=== PATIENT | male | born 1995 | race Two or more races ===

== ENCOUNTER 2020-04-18 01:22 | Observation (INO) ==
[2020-04-18] MEDS ORDERED: SODIUM CHLORIDE 0.9% 1,000 ML IV STA (01:48)
[2020-04-18] MEDS ORDERED: ONDANSETRON 4 MG/2 ML VIAL IV STA ×2 (01:48→05:03)
[2020-04-18] MEDS ORDERED: ALUM/MAG/SIMETH/LIDO VISC 1:1 30 ML BOTTLE PO STA (02:04)
[2020-04-18 02:18] LABS: Basophils % 0.4 % (0.0-0.8); Eosinophils % 0.6 % (0.00-10.9); Hematocrit 46.5 VOL% (42.0-52.0); Immature Granulocytes % 0.4 %; Immature Granulocytes Absolute 0.02 #; Lymphocytes # 2.4 10*3/uL (1.4-4.0); Lymphocytes % 44.6 % (21.2-54.2); Mean Corpuscular HGB Conc 34.4 GM/DL (32-36); Mean Corpuscular Volume 76.5 FL (87-102); Mean Platelet Volume 9.5 FL (9.6-12.0); Platelet Count 358 T/CUMM (130-400); Red Blood Count 6.08 MC/CUMM (3.8-5.5); White Blood Count 5.3 T/CUMM (4-12)
[2020-04-18] MEDS ORDERED: PROMETHAZINE INJ 12.5 MG in SODIUM CHLORIDE 0.9% 50 ML IV STA ×2 (02:19→05:03)
[2020-04-18] MEDS ORDERED: PROMETHAZINE 25 MG/1 ML VIAL ONE ×2 (02:20→05:11)
[2020-04-18 02:31] LABS: Albumin 4.6 G/DL (3.4-5.0); Bilirubin,Total 0.8 MG/DL (0.2-1.0); Calcium 9.7 MG/DL (8.5-10.1); Osmolality,Calculated 272.1 MOS/KG (273-304); Potassium 2.8 MMOL/L (3.5-5.1); Total Protein 8.7 G/DL (6.4-8.3)
[2020-04-18 02:33] LABS: Troponin I < 0.015 NG/ML (0.00-0.045)
[2020-04-18] MEDS ORDERED: POTASSIUM CHLORIDE INJ 40 MEQ in SODIUM CHLORIDE 0.45% 1,000 ML IV SCH (03:00)
[2020-04-18 04:34] LABS: Hypochromasia 1+
[2020-04-18 04:35] LABS: Microcytosis 1+; Platelet Estimate Normal
[2020-04-18] MEDS ORDERED: DEXTROSE 50% 25 GM/50 ML VIAL IV PRN (05:04)
[2020-04-18] MEDS ORDERED: GLUCAGON 1 MG VIAL IM PRN (05:04)
[2020-04-18] MEDS ORDERED: PROMETHAZINE 25 MG/1 ML VIAL IV PRN (05:04)
[2020-04-18] MEDS ORDERED: DOCUSATE SODIUM 100 MG CAPSULE PO PRN (05:04)
[2020-04-18] MEDS ORDERED: ACETAMINOPHEN 325 MG TABLET PO PRN (05:04)
[2020-04-18] MEDS ORDERED: PANTOPRAZOLE 40 MG VIAL IV STA (05:08)
[2020-04-18] MEDS ORDERED: DEXTROSE 50% 25 GM/50 ML SYRINGE IV PRN (05:13)
[2020-04-18] MEDS ORDERED: MAGNESIUM SULF RIDER 4 GM in PREMIX 1 EACH IV PRN (05:17)
[2020-04-18] MEDS ORDERED: MAGNESIUM SULF RIDER 2 GM in PREMIX 1 EACH IV PRN (05:17)
[2020-04-18] MEDS: ENOXAPARIN 40 MG/0.4 ML SYRINGE SUBCUT SCH (05:50)
[2020-04-18] MEDS: POTASSIUM CHLORIDE RIDER 10 MEQ in PREMIX 1 EACH IV PRN ×9 (05:50→23:07)
[2020-04-18] MEDS: ONDANSETRON 4 MG/2 ML VIAL IV PRN ×2 (09:12→14:16)
[2020-04-18 10:38] LABS: Risk Ratio 3.54; VLDL CHOLESTEROL 12.4 MG/DL
[2020-04-18] MEDS: PROMETHAZINE 25 MG/1 ML VIAL IM PRN (20:36)
[2020-04-18] MEDS: SODIUM CHLORIDE 0.9% 1,000 ML IV SCH (23:07)
[2020-04-19] MEDS: SODIUM CHLORIDE 0.9% 1,000 ML IV SCH ×2 (02:28→11:02)
[2020-04-19] MEDS: PROMETHAZINE 25 MG/1 ML VIAL IM PRN ×3 (03:15→21:19)
[2020-04-19] MEDS: ONDANSETRON 4 MG/2 ML VIAL IV PRN (06:18)
[2020-04-19] MEDS: ENOXAPARIN 40 MG/0.4 ML SYRINGE SUBCUT SCH (06:18)
[2020-04-19 06:39] LABS: Basophils % 0.6 % (0.0-0.8); Eosinophils % 0.8 % (0.00-10.9); Hematocrit 41.6 VOL% (42.0-52.0); Hemoglobin 13.8 GM/DL (14.0-18.0); Immature Granulocytes % 0.8 %; Immature Granulocytes Absolute 0.04 #; Lymphocytes # 1.8 10*3/uL (1.4-4.0); Lymphocytes % 34.1 % (21.2-54.2); Mean Corpuscular HGB Conc 33.2 GM/DL (32-36); Mean Corpuscular Volume 79.4 FL (87-102); Mean Platelet Volume 9.6 FL (9.6-12.0); Monocytes % 8.3 % (1.7-12.7); Neutrophils % 55.4 % (38.7-73.9); Platelet Count 289 T/CUMM (130-400); Red Blood Count 5.24 MC/CUMM (3.8-5.5); White Blood Count 5.2 T/CUMM (4-12)
[2020-04-19 06:52] LABS: Albumin 3.9 G/DL (3.4-5.0); Bilirubin,Total 0.7 MG/DL (0.2-1.0); Calcium 8.9 MG/DL (8.5-10.1); Osmolality,Calculated 274.7 MOS/KG (273-304); Potassium 3.3 MMOL/L (3.5-5.1); Total Protein 7.5 G/DL (6.4-8.3)
[2020-04-19 07:15] LABS: Hypochromasia 2+; Platelet Estimate Normal; Polychromasia Slight
[2020-04-19] MEDS: PANTOPRAZOLE 40 MG VIAL IV SCH (08:55)
[2020-04-19 09:24] LABS: Barbiturates Screen,Urine Negative (Negative); Benzodiazepines Screen,Urine Negative (Negative); Cannabinoid Screen,Urine Positive (Negative); Opiate Screen,Urine Negative (Negative); Phencyclidine Screen,Urine Negative (Negative)
[2020-04-19 09:31] LABS: Bilirubin,Urine Negative (Negative); Blood, Urine Small mg/dL (Negative); Glucose,Urine (UA) Negative (Negative); Ketones,Urine 80 mg/dL (Negative); Mucus,Urine Occasional /LPF (Occasional); Nitrite,Urine Negative (Negative); Protein,Urine Negative; RBC,Urine 4 /HPF (0-4); Urine Appearance CLEAR (Clear); Urine Color Yellow (Yellow); Urine Specific Gravity 1.024 (1.001-1.035); WBC,Urine 9 /HPF (0-6)
[2020-04-19] MEDS: POTASSIUM CHLORIDE RIDER 10 MEQ in PREMIX 1 EACH IV PRN ×3 (11:04→15:10)
[2020-04-20 04:09] LABS: Basophils % 0.5 % (0.0-0.8); Eosinophils # 0.2 10*3/uL (0.0-0.87); Eosinophils % 4.1 % (0.00-10.9); Hematocrit 40.4 VOL% (42.0-52.0); Hemoglobin 13.2 GM/DL (14.0-18.0); Immature Granulocytes % 0.5 %; Immature Granulocytes Absolute 0.03 #; Lymphocytes # 3.2 10*3/uL (1.4-4.0); Mean Corpuscular HGB Conc 32.7 GM/DL (32-36); Mean Corpuscular Volume 81.6 FL (87-102); Mean Platelet Volume 9.4 FL (9.6-12.0); Monocytes % 11.5 % (1.7-12.7); Neutrophils % 26.4 % (38.7-73.9); Platelet Count 257 T/CUMM (130-400); Red Blood Count 4.95 MC/CUMM (3.8-5.5); White Blood Count 5.7 T/CUMM (4-12)
[2020-04-20 04:51] LABS: Osmolality,Calculated 277.4 MOS/KG (273-304)
[2020-04-20] MEDS: PROMETHAZINE 25 MG/1 ML VIAL IM PRN ×2 (05:26→12:00)
[2020-04-20] MEDS: ENOXAPARIN 40 MG/0.4 ML SYRINGE SUBCUT SCH (05:26)
[2020-04-20 07:05] LABS: Band Neutrophils 2 % (0-10); Eosinophils 3 % (0-10); Lymphocytes 56 % (20-55); Segmented Neutrophils 31 % (50-85); Total Cells Counted 100
[2020-04-20 07:06] LABS: Hypochromasia 1+; Platelet Estimate Normal
[2020-04-20] MEDS: PANTOPRAZOLE 40 MG VIAL IV SCH (08:54)
[2020-04-20] MEDS ORDERED: INFLUENZA VIRUS VACCINE 0.5 ML SYRINGE IM ONE (09:00)
[2020-04-21] MEDS: SODIUM CHLORIDE 0.9% 1,000 ML IV SCH ×2 (00:23→09:19)
[2020-04-21] MEDS: ENOXAPARIN 40 MG/0.4 ML SYRINGE SUBCUT SCH (05:50)
[2020-04-21 06:23] LABS: Basophils % 0.6 % (0.0-0.8); Eosinophils # 0.2 10*3/uL (0.0-0.87); Eosinophils % 4.4 % (0.00-10.9); Hematocrit 39.8 VOL% (42.0-52.0); Hemoglobin 13.1 GM/DL (14.0-18.0); Immature Granulocytes % 0.8 %; Immature Granulocytes Absolute 0.04 #; Lymphocytes # 2.6 10*3/uL (1.4-4.0); Lymphocytes % 51.4 % (21.2-54.2); Mean Corpuscular HGB Conc 32.9 GM/DL (32-36); Mean Corpuscular Volume 80.6 FL (87-102); Monocytes % 11.5 % (1.7-12.7); Neutrophils % 31.3 % (38.7-73.9); Platelet Count 260 T/CUMM (130-400); Red Blood Count 4.94 MC/CUMM (3.8-5.5); Red Cell Distribution Width 13.1 % (9.3-17.3)
[2020-04-21 06:37] LABS: Calcium 8.8 MG/DL (8.5-10.1); Osmolality,Calculated 274.5 MOS/KG (273-304)
[2020-04-21 07:00] LABS: Atypical Lymphocytes Few; Band Neutrophils 1 % (0-10); Eosinophils 6 % (0-10); Hypochromasia 2+; Lymphocytes 59 % (20-55); Nucleated Red Blood Cells 1 (0-5); Segmented Neutrophils 30 % (50-85); Total Cells Counted 100
[2020-04-21 07:01] LABS: Microcytosis Slight; Platelet Estimate Normal
[2020-04-21] MEDS: PANTOPRAZOLE 40 MG VIAL IV SCH (09:18)
[2020-04-21] MEDS ORDERED: propofoL 200 MG/20 ML VIAL IV ONE (12:49)
[2020-04-21] MEDS ORDERED: LIDOCAINE 2% 5 ML VIAL ONE (12:50)
[2020-04-21] MEDS ORDERED: SODIUM BICARBONATE 650 MG TABLET PO SCH (21:00)
[2020-04-22] MEDS: ENOXAPARIN 40 MG/0.4 ML SYRINGE SUBCUT SCH (05:23)
[2020-04-22 06:18] LABS: Basophils % 0.6 % (0.0-0.8); Eosinophils # 0.3 10*3/uL (0.0-0.87); Eosinophils % 6.5 % (0.00-10.9); Hematocrit 41.5 VOL% (42.0-52.0); Hemoglobin 13.8 GM/DL (14.0-18.0); Immature Granulocytes % 0.8 %; Immature Granulocytes Absolute 0.04 #; Lymphocytes # 2.8 10*3/uL (1.4-4.0); Lymphocytes % 57.1 % (21.2-54.2); Mean Corpuscular HGB Conc 33.3 GM/DL (32-36); Mean Corpuscular Volume 79.8 FL (87-102); Mean Platelet Volume 10.4 FL (9.6-12.0); Monocytes % 10.6 % (1.7-12.7); Neutrophils % 24.4 % (38.7-73.9); Platelet Count 254 T/CUMM (130-400); Red Cell Distribution Width 12.8 % (9.3-17.3); White Blood Count 4.9 T/CUMM (4-12)
[2020-04-22 06:43] LABS: Calcium 8.6 MG/DL (8.5-10.1); Osmolality,Calculated 275.4 MOS/KG (273-304); Potassium 3.9 MMOL/L (3.5-5.1)
[2020-04-22 06:53] LABS: Atypical Lymphocytes Few; Eosinophils 7 % (0-10); Hypochromasia 1+; Lymphocytes 58 % (20-55); Microcytosis 1+; Platelet Estimate Adequate; Segmented Neutrophils 25 % (50-85); Total Cells Counted 100
[2020-04-22 07:12] VITALS: BP 103/50
== END 2020-04-22 08:54 | disposition home or self-care (01) ==
LOC: N.ED 01:22 → N.EDINP 01:22 → SUATTDRO 04:39 → N.EDINP 05:31 → N.3E 05:48
PROVIDERS: ADMIT Family Medicine; ATTEND Internal Medicine

== ENCOUNTER 2021-12-17 08:09 | Inpatient (IN) ==
[2021-12-17] MEDS ORDERED: ONDANSETRON 4 MG/2 ML VIAL IV STA (08:33)
[2021-12-17] MEDS ORDERED: SODIUM CHLORIDE 0.9% 1,000 ML IV STA (08:33)
[2021-12-17] MEDS ORDERED: PANTOPRAZOLE 40 MG VIAL IV STA (08:34)
[2021-12-17 09:03] LABS: Amorphous Crystals,Urine Few /HPF (Few); Basophils % 0.4 % (0.0-0.8); Eosinophils % 0.6 % (0.00-10.9); Hematocrit 42.2 VOL% (42.0-52.0); Hemoglobin 14.1 GM/DL (14.0-18.0); Immature Granulocytes % 0.8 %; Immature Granulocytes Absolute 0.04 #; Lymphocytes # 1.6 10*3/uL (1.4-4.0); Lymphocytes % 33.9 % (21.2-54.2); Mean Corpuscular HGB Conc 33.4 GM/DL (32-36); Mean Corpuscular Volume 77.7 FL (87-102); Mean Platelet Volume 9.9 FL (9.6-12.0); Monocytes # 0.5 10*3/uL (0.11-0.8); Monocytes % 10.1 % (1.7-12.7); Mucus,Urine Occasional /LPF (Occasional); Neutrophils % 54.2 % (38.7-73.9); Platelet Count 299 T/CUMM (130-400); RBC,Urine 2 /HPF (0-4); Red Blood Count 5.43 MC/CUMM (3.8-5.5); Red Cell Distribution Width 12.8 % (9.3-17.3); White Blood Count 4.8 T/CUMM (4-12)
[2021-12-17 09:04] LABS: Protein,Urine Negative (Negative); Urine Appearance Clear (Clear); Urine Color Yellow (Yellow); Urine pH 8.5 (4.5-8.0)
[2021-12-17 09:05] LABS: Bilirubin,Urine Negative (Negative); Blood, Urine Negative (Negative); Glucose,Urine (UA) Negative (Negative); Ketones,Urine 80 mg/dL (Negative); Nitrite,Urine Negative (Negative)
[2021-12-17 09:21] LABS: Barbiturates Screen,Urine Negative (Negative); Benzodiazepines Screen,Urine Negative (Negative); Cannabinoid Screen,Urine Positive (Negative); Opiate Screen,Urine Negative (Negative); Phencyclidine Screen,Urine Negative (Negative)
[2021-12-17 09:24] LABS: Albumin 4.2 G/DL (3.4-5.0); Calcium 9.4 MG/DL (8.5-10.1); Osmolality,Calculated 265.4 MOS/KG (273-304); Potassium 2.7 MMOL/L (3.5-5.1); Total Protein 7.8 G/DL (6.4-8.2)
[2021-12-17] MEDS ORDERED: POTASSIUM CHLORIDE RIDER 20 MEQ/100 ML PREMIX IV STA (09:27)
[2021-12-17] MEDS ORDERED: ONDANSETRON 4 MG/2 ML VIAL IV PRN (09:42)
[2021-12-17] MEDS ORDERED: ACETAMINOPHEN 325 MG TABLET PO PRN (09:42)
[2021-12-17] MEDS ORDERED: POTASSIUM CHLORIDE RIDER 10 MEQ/100 ML PREMIX IV SCH (10:00)
[2021-12-17] MEDS: POTASSIUM CHLORIDE RIDER 10 MEQ/100 ML PREMIX IV SCH ×4 (10:07→13:30)
[2021-12-17] MEDS: LACTATED RINGERS 1,000 ML IV SCH ×2 (10:26→18:05)
[2021-12-17] MEDS ORDERED: METOCLOPRAMIDE 10 MG/2 ML VIAL IV ONE (10:43)
[2021-12-17 15:18] LABS: Calcium 8.6 MG/DL (8.5-10.1); Potassium 3.8 MMOL/L (3.5-5.1)
[2021-12-17] MEDS: PANTOPRAZOLE 40 MG VIAL IV SCH (20:32)
[2021-12-18 05:50] LABS: Basophils # 0.1 10*3/uL (0.0-0.2); Eosinophils # 0.3 10*3/uL (0.0-0.87); Eosinophils % 5.1 % (0.00-10.9); Hematocrit 37.2 VOL% (42.0-52.0); Hemoglobin 12.3 GM/DL (14.0-18.0); Immature Granulocytes % 0.6 %; Immature Granulocytes Absolute 0.03 #; Lymphocytes % 60.4 % (21.2-54.2); Mean Corpuscular HGB Conc 33.1 GM/DL (32-36); Mean Corpuscular Volume 79.3 FL (87-102); Mean Platelet Volume 10.5 FL (9.6-12.0); Monocytes # 0.6 10*3/uL (0.11-0.8); Monocytes % 12.7 % (1.7-12.7); Neutrophils % 20.2 % (38.7-73.9); Platelet Count 249 T/CUMM (130-400); Red Blood Count 4.69 MC/CUMM (3.8-5.5); Red Cell Distribution Width 12.8 % (9.3-17.3); White Blood Count 4.9 T/CUMM (4-12)
[2021-12-18 06:10] LABS: Calcium 8.9 MG/DL (8.5-10.1); Osmolality,Calculated 268.8 MOS/KG (273-304); Potassium 2.8 MMOL/L (3.5-5.1)
[2021-12-18 06:36] LABS: Eosinophils 5 % (0-10); Lymphocytes 66 % (20-55); Platelet Estimate Adequate; Total Cells Counted 100
[2021-12-18] MEDS: POTASSIUM CHLORIDE RIDER 10 MEQ/100 ML PREMIX IV PRN ×5 (07:21→13:15)
[2021-12-18] MEDS: LACTATED RINGERS 1,000 ML IV SCH ×2 (07:21→11:34)
[2021-12-18] MEDS ORDERED: LACTATED RINGERS 1,000 ML IV SCH (08:00)
[2021-12-18] MEDS ORDERED: propofoL 200 MG/20 ML VIAL IV ONE ×2 (10:31→10:39)
[2021-12-18] MEDS ORDERED: LIDOCAINE 2% 5 ML VIAL ONE (10:31)
[2021-12-18 11:24] VITALS: BP 112/74
[2021-12-18] MEDS: PANTOPRAZOLE 40 MG VIAL IV SCH (11:58)
== END 2021-12-18 15:20 | disposition home or self-care (01) | DRG 392 ==
LOC: N.ED 08:09 → N.EDINP 09:48 → SUATTDRO 09:48 → N.5E 10:23
PROVIDERS: ADMIT Internal Medicine; ATTEND Internal Medicine Geriatric Medicine